=== PATIENT | male | born 1965 | race Caucasian/White ===

== ENCOUNTER 2017-01-13 14:51 | Outpatient (CLI) | payer OTHER, MEDICARE | END 2017-01-13 14:52 | disposition home or self-care (01) | DX: G47.33 Obstructive sleep apnea (adult) (pediatric) (principal) ==

== ENCOUNTER 2017-02-25 15:11 | Outpatient (CLI) | payer OTHER, MEDICARE | END 2017-02-25 15:12 | disposition home or self-care (01) | DX: G47.33 Obstructive sleep apnea (adult) (pediatric) (principal) ==

== ENCOUNTER 2018-06-22 14:49 | Outpatient (CLI) | payer OTHER, MEDICARE | END 2018-06-22 14:50 | disposition home or self-care (01) | LOC: SC 14:49 | PROVIDERS: ATTEND Internal Medicine Pulmonary Disease | DX: G47.33 Obstructive sleep apnea (adult) (pediatric) (principal) | CPT/HCPCS: 99212; 99213 ==

== ENCOUNTER 2020-08-16 07:59 | Outpatient (CLI) | payer MEDICARE, OTHER ==
--- NOTE | 2020-08-16 09:10 | SLEEP CARE CONSULTATION ---
Information from patient questionnaire entered by Nimisha Thomas. I have reviewed and concur with the information entered by Nimisha Thomas. This document represents the service I personally performed and the decisions made by me, Mercedes Garcia ARNP. History of Present Illness Service Date and Time: 08/16/2020 0759 Previous diagnosis: Moderate, Obstructive Sleep Apnea-Hypopnea Syndrome AHI: 24 (in 2006) Reason for follow up: annual (last seen 2018) Equipment type: CPAP Equipment obtained from: [employer] (getting supplies as needed) Mask style: Nasal Mask brand: Respironics Backup mask available: Yes (old mask) Last cushion change: 1 month ago Prior sleep studies: Yes Year and Where: 2006 - [facility] additional information: KIKI VASQUEZ was diagnosed to have moderate, AHI 24, obstructive sleep apnea- hypopnea syndrome and returned today for CPAP therapy annual follow-up. CPAP Compliance Data - Data Reviewed with Patient Average duration of nightly device use: 5 hours 23 minutes Compliance rate %: 75.6 Current pressure setting (cmH2O): 4-8 Humidity settin Heated hose settin Average residual AHI: 3.3 Central apnea: 0.1 Obstructive apnea: 1.1 Hypopnea: 2.0 Average large leak: 14 minutes 10 secs Subjective Missed days of use due to: reports: family emergency ( ) Patient concerns: reports: air blowing in eyes (gets around pillows, not bad, just adjusts straps), mask leak noise (adjusting mask straps takes care of them). denies: aerophagia, mask discomfort, condensation in mask/hose, nasal congestion, dry mouth, nose, throat, epistaxis, other Observed to snore while using device: No Current pressure setting perceived as: comfortable (sometimes, occasionally too high (2-5% of time)) On therapy, patient: reports: sleeping better, awakening more refreshed, being more awake and alert during the day, more rested overall. denies: drowsiness while driving Initial [place] Sleepiness Scale score: 7 (in 2012) Current [place] Sleepiness Scale score: 7 Allergies and Home Medications Drug allergies reviewed: Yes ([place]) Home medication list reviewed: Yes Allergy and home medication list: L-thyroxine Colesevelan Revlimid Effexor Aspirin Potassium Vitamin D Cialis Review of Systems Review of systems same as previous: No (hypothyroidism) Physical Exam Heart Rate: 85 O2 Saturation: 97 Height: 6 ft 1 in Weight: 268 lb Body Mass Index: 35.3 BMI Classification: Obese Impression and Plan 1. Obstructive Sleep Apnea-Hypopnea Syndrome, moderate, with great treatment compliance and good apnea control. On CPAP therapy, the patient has better sleep quality and is more rested overall. His machine is not accurately putting data on his SD card. We changed to another SD card and there are gaps in information. Patient states he uses his machine every night and pop not know why it is not recording. His machine was last replaced 01/22/2017. I will have the machine checked for malfunction. He was shown to be compliant in the last 90 days by what was recorded. Patient has had a few nights when he woke up and felt the pressure was too much, but he does not feel this is a problem and denies aerophagia. I will not adjust his pressure at this time. He was encouraged to notify me if he does have aerophagia or he has difficulty using machine due to pressure being too natan. Patient's apnea severity and rationale for treatment t o reduce apnea, improve sleep quality and reduce cardiovascular and cerebrovascular events was reviewed. I also reviewed the benefit of consistent device use of CPAP for his arrhythmia. * Continue auto CPAP pressure at 4-8 cmH2O * Notify me if snoring with mask or feeling that the pressure is too much or too little * Attempt to lose weight * Call this office if any problems using CPAP * Return for follow up in 1 year, or sooner if concerns arise Visit Type: In Office Location of Provider: Office Time Spent with Patient (minutes): 24 Provider Statement: I spent 100% of the Face to Face Visit with the patient with greater than 50% spent counseling the patient and coordination of care.
== END 2020-08-16 08:00 | disposition home or self-care (01) ==
LOC: SC 07:59
PROVIDERS: ATTEND Nurse Practitioner Family
DX: G47.33 Obstructive sleep apnea (adult) (pediatric) (principal); E66.9 Obesity, unspecified; Z68.35 Body mass index [BMI] 35.0-35.9, adult
CPT/HCPCS: 99213; G0463; 99212

== ENCOUNTER 2021-08-10 08:36 | Outpatient (CLI) | payer MEDICARE, OTHER ==
--- NOTE | 2021-08-10 08:57 | SLEEP CARE CONSULTATION ---
Information from patient questionnaire entered by Rosa Mccrary. I have reviewed and concur with the information entered by Rosa Mccrary. This document represents the service I personally performed and the decisions made by me, Mercedes Garcia ARNP. History of Present Illness Service Date and Time: 08/10/2021 0836 Previous diagnosis: Moderate, Obstructive Sleep Apnea-Hypopnea Syndrome AHI: 24 (in 2006) Reason for follow up: annual Equipment type: CPAP Equipment obtained from: [employer] (getting supplies as needed) Mask style: Nasal Backup mask available: Yes (old mask) Last cushion change: 3 weeks ago Prior sleep studies: Yes Year and Where: 2006 - [place], [place] Type of Sleep Study: Polysomnography HPI additional information: KIKI VASQUEZ was diagnosed to have moderate, AHI 24, obstructive sleep apnea- hypopnea syndrome and returns via video Telehealth visit today for CPAP therapy annual follow-up. Sleep Study - Results Prior sleep studies: Yes Year and Where: 2006 - [place], [place] CPAP Compliance Data - Data Reviewed with Patient Average duration of nightly device use: 6 hours 54 minutes Compliance rate %: 85.6 (for 90 days; 68.3 for 180 days) Current pressure setting (cmH2O): 4-8 Humidity settin Heated hose settin Average residual AHI: 3.3 Average large leak: 6 minutes 32 seconds Subjective Patient concerns: denies: aerophagia, mask discomfort, air blowing in eyes, mask leak noise, condensation in mask/hose, nasal congestion, dry mouth, nose, throat, epistaxis, other Observed to snore while using device: No Current pressure setting perceived as: comfortable On therapy, patient: reports: sleeping better, awakening more refreshed, being more awake and alert during the day, more rested overall. denies: drowsiness while driving Initial [place] Sleepiness Scale score: 7 (in 2013) Current [place] Sleepiness Scale score: 8 Allergies and Home Medications Home medication list reviewed: Yes (stopped effexor; started bupropion) Review of Systems Review of systems same as previous: Yes (no changes) Physical Exam Vital signs obtained and entered by: Telehealth visit to reduce exposure during covid pandemic Height: 6 ft 1 in Impression and Plan 1. Obstructive Sleep Apnea-Hypopnea Syndrome, moderate, with good treatment compliance and good apnea control. On CPAP therapy, the patient has better sleep quality and is more rested overall. Patient has a DreamStation. He has heard about the recall.Patient has already registered their device for the recall. Patient denies any black particles seen in machine or hoses, any unusual odors coming from device. Patient has not experienced any physical symptoms such as upper airway irritation, headache, skin or eye irritation, asthma, nausea/vomiting, difficulty breathing or chest pain. Patient informed that they may use an inline CPAP filter that they can obtain online to reduce chance of any particles being inhaled or ingested. We discussed thoroughly the health risks of not using the CPAP versus continuing use with the filter in place. If patient is not able to sleep due to waking up choking, gasping for air or other respiratory distress that they may decide to continue using it until it is either replaced or repaired. Patient voiced understanding and agreement with plan. Patient's apnea severity and rationale for treatment to reduce apnea, improve sleep quality and reduce cardiovascular and cerebrovascular events was reviewed. I also reviewed the benefit of consistent device use of CPAP for arrhythmia. Patient was encouraged to lose weight for their overall health and to reduce apneas. Patient goes to the gym to exercise 3 days a week and tries to stay active to help control his weight. * Continue auto CPAP pressure at 4-8 cmH2O * Notify me if snoring with mask or feeling that the pressure is too much or too little * Attempt to lose weight * Call this office if any problems using CPAP * Return for follow up in 1 year, or sooner if concerns arise Counseling Topics: Spare mask, Weight loss health impact Visit Type: Telehealth Video Video Type: VSee Patient Location: Home Location of Provider: Office Patient agrees and consents to this telehealth visit type: Yes Patient agrees to have their insurance billed: Yes Time Spent with Patient (minutes): 21 Provider Statement: I spent 100% of the Telehealth Video Call with the patient with greater than 50% spent counseling the patient and coordination of care.
== END 2021-08-10 08:37 | disposition home or self-care (01) ==
LOC: SC 08:36
PROVIDERS: ATTEND Nurse Practitioner Family
DX: G47.33 Obstructive sleep apnea (adult) (pediatric) (principal)

== ENCOUNTER 2022-03-07 08:47 | Outpatient (CLI) | payer MEDICARE, OTHER ==
[2022-03-07 09:26] VITALS: BP 140/95
--- NOTE | 2022-03-07 09:27 | SLEEP CARE CONSULTATION ---
Information from patient questionnaire entered by Thuy Isabel MA. I have reviewed and concur with the information entered by Thuy Isabel MA. This document represents the service I personally performed and the decisions made by , Mercedes Garcia ARNP. History of Present Illness Service Date and Time: 03/07/2022 0847 Previous diagnosis: Moderate, Obstructive Sleep Apnea-Hypopnea Syndrome AHI: 24 (in 2006) Reason for follow up: six month (DUE FOR NEW MACHINE, SHASTA, SET UP DATE 01/22/2017,) Equipment type: CPAP Equipment obtained from: [employer] (getting supplies as needed) Mask style: Nasal Backup mask available: Yes (old mask) Last cushion change: 2-3 weeks Prior sleep studies: Yes Year and Where: 2006 - [place], [place] Type of Sleep Study: Polysomnography HPI additional information: KIKI VASQUEZ was diagnosed to have moderate, AHI 24, obstructive sleep apnea- hypopnea syndrome and returned today for CPAP therapy six month follow-up. Sleep Study - Results Type of Sleep Study: Polysomnography Prior sleep studies: Yes Year and Where: 2006 - [place], [place] CPAP Compliance Data - Data Reviewed with Patient Average duration of nightly device use: 6 hours 58 minutes Compliance rate %: 88.3 (180 days) Current pressure setting (cmH2O): 4-8 Humidity settin Heated hose settin Average residual AHI: 2.3 Central apnea: 0.1 Obstructive apnea: 1.0 Average large leak: 1 mins 46 secs Subjective Patient concerns: denies: aerophagia, mask discomfort, air blowing in eyes, mask leak noise, condensation in mask/hose, nasal congestion, dry mouth, nose, throat, epistaxis, other Observed to snore while using device: No Current pressure setting perceived as: comfortable (high pressure at time when he wakes up in middle of night) On therapy, patient: reports: sleeping better, awakening more refreshed, being more awake and alert during the day, more rested overall. denies: drowsiness while driving Initial [place] Sleepiness Scale score: 7 (in 2012) Current [place] Sleepiness Scale score: 5 Allergies and Home Medications Home medication list reviewed: Yes (Cardura XL 4 mg) Review of Systems Review of systems same as previous: Yes (no changes) Physical Exam Vital signs obtained and entered by: MARIVEL PITTS Blood Pressure: 140/95 (RESP 16, PULSE 67, RIGHT,) Cuff size: wrist Heart Rate: 69 O2 Saturation: 97 (MASK) Height: 6 ft 1 in Weight: 268 lb (WITH CLOTHES) Body Mass Index: 35.3 BMI Classification: Obese Impression and Plan 1. Obstructive Sleep Apnea-Hypopnea Syndrome, moderate, with good treatment compliance and good apnea control. On CPAP therapy, the patient has better sleep quality and is more rested overall. He has not complaints or issues with CPAP mask use. He states sometimes he will wake up during the night and the pressure feels too high. He has difficulty getting to to ramp back down and he will just leave off rest of night. Other lezama the pressure feels comfortable. He has a Dreamstation that was last updated 01/2017. The patients CPAP is over 5 years old and of reasonable use. Thus, the CPAP will be updated. A DWO prescription will be made. Compliance guidelines for new device and follow up discussed. Patient's apnea severity and rationale for treatment to reduce apnea, improve sleep quality and reduce cardiovascular and cerebrovascular events was reviewed. I also reviewed the benefit of consistent device use of CPAP for arrhythmia. * Continue auto CPAP pressure at 4-8 cmH2O * Updates device * Updates supplies as needed * Notify me if snoring with mask or feeling that the pressure is too much or too little * Attempt to lose weight * Call this office if any problems using CPAP * Return for follow up one month after obtaining new device, or sooner if concerns arise Counseling Topics: Spare mask, Weight loss health impact Visit Type: In Office Time Spent with Patient (minutes): 21 Provider Statement: I spent 100% of the Face to Face Visit with the patient with greater than 50% spent counseling the patient and coordination of care.
== END 2022-03-07 08:48 | disposition home or self-care (01) ==
LOC: SC 08:47
PROVIDERS: ATTEND Nurse Practitioner Family
DX: G47.33 Obstructive sleep apnea (adult) (pediatric) (principal); E66.9 Obesity, unspecified; Z68.35 Body mass index [BMI] 35.0-35.9, adult
CPT/HCPCS: 99213; G0463; 99212

== ENCOUNTER 2022-06-05 09:02 | Outpatient (CLI) | payer MEDICARE, OTHER ==
[2022-06-05 09:47] VITALS: BP 121/79
--- NOTE | 2022-06-05 09:47 | SLEEP CARE CONSULTATION ---
Information from patient questionnaire entered by Thuy Isabel MA. I have reviewed and concur with the information entered by Thuy Isabel MA. This document represents the service I personally performed and the decisions made by , Mercedes Garcia ARNP. History of Present Illness Service Date and Time: 06/05/2022 0902 Previous diagnosis: Moderate, Obstructive Sleep Apnea-Hypopnea Syndrome AHI: 24 (in 2006) Reason for follow up: first compliance (PRANAY MELGAR 04/03/2022, ), first compliance after device update Equipment type: CPAP Equipment obtained from: [email or web address] (getting supplies as needed) Mask style: Nasal Mask brand: Respironics (Dreamwear) Backup mask available: Yes (old mask) Last cushion change: 2 weeks ago Prior sleep studies: Yes Year and Where: 2006 - [place], [place] Type of Sleep Study: Polysomnography HPI additional information: KIKI VASQUEZ was diagnosed to have moderate, AHI 24, obstructive sleep apnea- hypopnea syndrome and returned today for CPAP therapy first compliance after updating device follow-up. Sleep Study - Results Type of Sleep Study: Polysomnography Prior sleep studies: Yes Year and Where: 2006 - [place], [place] CPAP Compliance Data - Data Reviewed with Patient Average duration of nightly device use: 7 HOURS 16 MINUTES Compliance rate %: 100 (05/05/22-06/03/22; 30 days used) Current pressure setting (cmH2O): 4-8 Average residual AHI: 0.9 Central apnea: .2 Obstructive apnea: .5 Hypopnea: .1 Average large leak: .0 Subjective Patient concerns: denies: aerophagia, mask discomfort, air blowing in eyes, mask leak noise, condensation in mask/hose, nasal congestion, dry mouth, nose, throat, epistaxis, other Observed to snore while using device: No Current pressure setting perceived as: comfortable On therapy, patient: reports: sleeping better, awakening more refreshed, being more awake and alert during the day, more rested overall. denies: drowsiness while driving Initial [place] Sleepiness Scale score: 7 (in 2012) Current [place] Sleepiness Scale score: 6 (06/05/2022) Allergies and Home Medications Home medication list reviewed: Yes Allergy and home medication list: OPIATE TINCTURE to assist with adverse effects of Chemo/CANCER TREATMENT Review of Systems Review of systems same as previous: Yes (no changes) Physical Exam Vital signs obtained and entered by: MARIVEL PITTS Blood Pressure: 121/79 (RESP 18, PULSE 72, RIGHT) Cuff size: wrist Heart Rate: 72 O2 Saturation: 98 (PAPER MASK) Height: 6 ft 1 in Weight: 254 lb (CLOTHES) Weight change since last visit: GYM - AND EXTRA OUTSIDE WORK. Body Mass Index: 33.5 BMI Classification: Obese Impression and Plan 1. Obstructive Sleep Apnea-Hypopnea Syndrome, moderate, with excellent treatment compliance and excellent apnea control. On CPAP therapy, the patient has better sleep quality and is more rested overall. Patient has significant improvement of his sleep apnea and feels the pressure is comfortable. Patient denies problems with oral dryness, nasal congestion, epistaxis, skin irritation or aerophagia. Patient's apnea severity and rationale for treatment to reduce apnea, improve sleep quality and reduce cardiovascular and cerebrovascular events was reviewed. I also reviewed the benefit of consistent device use of CPAP for arrhythmia. 2. Obesity, unspecified. Currently patients BMI is [33.5]. Obesity increases the risk of apnea, CPAP pressure requirements and overall health risks especially cardiovascular and diabetes. Thus patient is advised to[ continue to try to] lose weight. Weight loss can be done with reducing portion size, reducing refined foods and balancing content with vegetables, fruit and whole grain foods. In addition, patient encouraged to get regular exercise. * Continue auto CPAP pressure at 4-8 cmH2O * Notify me if snoring with mask or feeling that the pressure is too much or too little * Attempt to lose weight * Call this office if any problems using CPAP * Return for follow up in 1 year, or sooner if concerns arise Counseling Topics: Spare mask, Weight loss health impact Visit Type: In Office Time Spent with Patient (minutes): 20 Provider Statement: I spent 100% of the Face to Face Visit with the patient with greater than 50% spent counseling the patient and coordination of care.
== END 2022-06-05 09:03 | disposition home or self-care (01) ==
LOC: SC 09:02
PROVIDERS: ATTEND Nurse Practitioner Family
DX: G47.33 Obstructive sleep apnea (adult) (pediatric) (principal); E66.9 Obesity, unspecified; Z68.33 Body mass index [BMI] 33.0-33.9, adult
CPT/HCPCS: 99213; G0463; 99212

== ENCOUNTER 2024-06-03 09:14 | Outpatient (CLI) | payer MEDICARE, OTHER ==
--- NOTE | 2024-06-03 09:47 | Sleep Patient Instructions ---
Sleep Center Visit Summary - Patient Visit Information Reason for Visit: Annual follow-up - Patient Instructions Additional Instructions: You will continue with CPAP therapy with pressure set at 4-8 cmH2O. A supply prescription will be updated with your DME. Please follow up with the sleep care office in 1 year. - Clinic Information Contact: [facility] [address] [place] [address] [email or web address] T: [phone]
--- NOTE | 2024-06-03 09:50 | SLEEP CARE CONSULTATION ---
Information from patient questionnaire entered by Odalys Flaherty. I have reviewed and concur with the information entered by Odalys Flaherty. This document represents the service I personally performed and the decisions made by me, Mercedes Garcia ARNP. History of Present Illness Service Date and Time: 06/03/2024 09 Previous diagnosis: Moderate, Obstructive Sleep Apnea-Hypopnea Syndrome AHI: 24 (in 2006) Reason for follow up: annual (LAST SEEN 05/2024) Equipment type: CPAP (RESMED 11, s/u 03/2022) Equipment obtained from: [employer] (getting supplies as needed) Mask style: Nasal Backup mask available: Yes Last cushion change: 1+ weeks Prior sleep studies: Yes Year and Where: 2006 - [place], [place] Type of Sleep Study: Polysomnography HPI additional information: KIKI VASQUEZ was diagnosed to have moderate, AHI 24, obstructive sleep apnea- hypopnea syndrome and returned today for CPAP therapy annual follow-up. Sleep Study - Results Type of Sleep Study: Polysomnography Prior sleep studies: Yes Year and Where: 2006 - [place], [place] CPAP Compliance Data - Data Reviewed with Patient Average duration of nightly device use: 7 HRS 17 MINS Compliance rate %: 99 (06/02/23-06/02/24; 362/365 days used) Current pressure setting (cmH2O): 4-8 Average residual AHI: 1.0 Central apnea: 0.3 Obstructive apnea: 0.5 Hypopnea: 0.2 Average large leak: 1.4 L/min Subjective Missed days of use due to: reports: family emergency, illness Patient concerns: reports: mask leak noise. denies: aerophagia, mask discomfort, air blowing in eyes, condensation in mask/hose, nasal congestion, dry mouth, nose, throat, epistaxis Observed to snore while using device: No Current pressure setting perceived as: comfortable On therapy, patient: reports: sleeping better, awakening more refreshed, being more awake and alert during the day, more rested overall. denies: drowsiness while driving Initial [place] Sleepiness Scale score: 7 (in 2012) Current [place] Sleepiness Scale score: 9 (06/03/24) Allergies and Home Medications Known drug allergies: Yes (as listed) Drug allergies reviewed: Yes Home medication list reviewed: Yes (Effexor, Vit B) Allergy and home medication list: Allergies cholestyramine Allergy (Verified 06/01/24 10:28) colesevelam [From WelChol] Allergy (Verified 06/01/24 10:28) colestipol Allergy (Verified 06/01/24 10:28) sildenafil [From Viagra] Allergy (Verified 06/01/24 10:28) Review of Systems Review of systems same as previous: Yes (NO CHANGE) Physical Exam Vital signs obtained and entered by: ODALYS Tenorio MA Blood Pressure: 139/78 (LEFT ARM) Cuff size: long Heart Rate: 62 O2 Saturation: 100 Height: 6 ft 1 in Weight: 271 lb 6.4 oz Body Mass Index: 35.8 BMI Classification: Obese Impression and Plan 1. Obstructive Sleep Apnea-Hypopnea Syndrome, moderate, with good treatment compliance and good apnea control. On CPAP therapy, the patient has better sleep quality and is more rested overall. He has significant improvement of his sleep apnea with CPAP therapy. He is satisfied with current CPAP therapy and pressures are comfortable. He denies any significant issues or complaints with using his CPAP. I will update his supply prescription and see him in follow-up next year. Patient's apnea severity and rationale for treatment to reduce apnea, improve sleep quality and reduce cardiovascular and cerebrovascular events was reviewed. I also reviewed the benefit of consistent device use of CPAP for arrhythmia. 2. Obesity, unspecified. Currently patients BMI is 35.8. Obesity increases the risk of apnea, CPAP pressure requirements and overall health risks especially cardiovascular and diabetes. Thus patient is advised to lose weight. * Continue auto CPAP pressure at 4-8 cmH2O * Update supply prescription. * Notify me if snoring with mask or feeling that the pressure is too much or too little * Attempt to lose weight * Call this office if any problems using CPAP * Return for follow up in 12 months, or sooner if concerns arise Continue with device pressure at (cmH2O): 4-8 Counseling Topics: Spare mask, Weight loss health impact Prescriptions: Device supplies Follow up with Sleep Care in: 1 year Visit Type: In Office Time Spent with Patient (minutes): 20 Provider Statement: I spent 100% of the Face to Face Visit with the patient with greater than 50% spent counseling the patient and coordination of care.
[2024-06-03 09:54] VITALS: BP 139/78; O2SAT 100
== END 2024-06-03 09:15 | disposition home or self-care (01) ==
LOC: SC 09:14
PROVIDERS: ATTEND Nurse Practitioner Family
DX: G47.33 Obstructive sleep apnea (adult) (pediatric) (principal)
CPT/HCPCS: 99213; G0463; 99212